=== PATIENT | male | born 1955 | race Caucasian/White ===

== ENCOUNTER 2016-04-16 09:49 | Emergency (ER) | payer BC ==
[~2016-04-16] VITALS: Ht 188 cm; Wt 96.0 kg
[~2016-04-16 09:49] MED LIST: ADVICOR PO; ASPCH81 PO; DRV100 PO; METO50TA7 PO
[2016-04-16 09:50] VITALS: TEMP 36.6; Ht 188 cm; Wt 96.0 kg
--- NOTE | 2016-04-16 11:03 | DIAGNOSTIC IMAGING REPORT ---
CHEST ONE VIEW PORTABLE CLINICAL HISTORY: Evaluate Fever/Sepsis pain. Edema. COMPARISON STUDY: 05/11/2008 FINDINGS: The bones soft tissues and hemidiaphragms are normal. The cardiomediastinal silhouette is normal. The lungs are clear. The pulmonary vasculature is normal. IMPRESSION: Negative chest. Electronically signed by: Artem Ruano M.D. 04/16/2016 11:02 AM Dictated Date/Time: 04/16/2016 11:02 AM
[2016-04-16 11:09] LABS: BASO % 0.3 %; BASO ABS # 0.02 K/uL (0-0.2); COMPLETE YES; EOS % 1.3 %; HEMATOCRIT 46.6 % (42-52); IG% 0.3 %; LYMPH % 28.7 %; MEAN CELL VOLUME 91.7 fL (80-100); MEAN CORPUSCULAR HEMOGLOBIN 32.5 pg (25-34); MEAN CORPUSCULAR HGB CONC 35.4 g/dl (32-36); MONO % 9.1 %; NEUT % 60.3 %; PLATELET COUNT 239 K/uL (130-400); RED BLOOD COUNT 5.08 M/uL (4.7-6.1); WHITE BLOOD COUNT 6.96 K/uL (4.8-10.8)
[2016-04-16 11:17] LABS: PROTHROMBIN TIME (PATIENT) 10.6 SECONDS (9.0-12.0)
[2016-04-16] MEDS ORDERED: ASPI1TAB83 PO (11:23)
[2016-04-16 11:24] LABS: ALT/SGPT 50 U/L (12-78); BLOOD UREA NITROGEN 16 mg/dl (7-18); CALCIUM 8.8 mg/dl (8.5-10.1); CARBON DIOXIDE 28 mmol/L (21-32); CHLORIDE 105 mmol/L (98-107); GLUCOSE 103 mg/dl (70-99); SODIUM 142 mmol/L (136-145)
[2016-04-16] MEDS ORDERED: ATOR-24 PO (11:26)
[2016-04-16] MEDS ORDERED: TMB/100 PO (11:26)
[2016-04-16] MEDS ORDERED: FLUO20CA35 PO (11:28)
[2016-04-16] MEDS ORDERED: PANT40TA PO (11:29)
[2016-04-16 11:34] LABS: ALKALINE PHOSPHATASE 140 U/L (45-117); AST/SGOT 29 U/L (15-37); CKMB/CK RATIO 0.7 (0-3.0)
[2016-04-16] MEDS ORDERED: METO25TA3 PO (11:37)
[2016-04-16] MEDS ORDERED: PRT/20 PO (11:37)
[2016-04-16] MEDS ORDERED: FLUO40CA8 PO (11:37)
[2016-04-16] MEDS ORDERED: APIXABAN 2.5 MG TAB PO STA (13:11)
[2016-04-16 13:13] VITALS: BP 122/78; PULSE 80; O2SAT 97
[2016-04-16] MEDS ORDERED: APIX1TAB3 PO (13:15)
--- NOTE | 2016-04-16 13:16 | EMERGENCY ROOM VISIT NOTE ---
History Report prepared by Messi: Parish Vaughan Under the Supervision of: Dr. Wilbert Hernandez D.O. First contact with patient: 10:34 Chief Complaint: ILLNESS Stated Complaint: DR REFERRED History of Present Illness The patient is a 60 year old male with a history of hypertension who presents to the Emergency Room with complaints acute abnormal heart rhythm since this morning. The patient has had atrial fibrillation periodically for the past 9-10 years, but he is in sinus rhythm at baseline. The patient was having a regular check up with his PCP this morning when the abnormal rhythm was found. The patient cannot recall the last time he was diagnosed with a-fib. The patient woke up with abdominal pain today but is otherwise feeling fine. He was not having any palpitations today. He takes baby aspirin daily. The patient follows up with the [facility]. Source of History: patient Onset: this morning Position: other (heart) Quality: other (irregular rhythm) Timing: other (acute) Associated Symptoms: + abdominal pain Review of Systems See HPI for pertinent positives & negatives. A total of 10 systems reviewed and were otherwise negative. Past Medical & Surgical Medical Problems: (1) HTN (hypertension) Family History Patient reports no known family medical history. Social History Smoking Status: Never Smoker Occupation Status: employed Current/Historical Medications Scheduled Apixaban (Eliquis), 1 TAB PO BID Aspirin (Aspirin), 1 TAB PO DAILY Atorvastatin (Lipitor), 40 MG PO DAILY Flecainide Acetate (Tambocor), 150 MG PO BID Fluoxetine (Prozac), 40 MG PO DAILY Metoprolol Succ (Toprol Xl) (Toprol-Xl), 25 MG PO HS Pantoprazole (Protonix), 20 MG PO Q2D Allergies Coded Allergies: No Known Allergies (Verified , 04/16/16) Physical Exam Vital Signs Date Time Temp Pulse Resp B/P Pulse Ox O2 Delivery O2 Flow Rate FiO2 04/16/16 13:13 80 16 122/78 97 Room Air 04/16/16 11:41 64 16 123/87 04/16/16 10:42 82 04/16/16 09:50 36.6 86 16 136/81 100 Room Air Physical Exam CONSTITUTIONAL/VITAL SIGNS: Reviewed / noted above. GENERAL: Non-toxic in appearance. INTEGUMENTARY: Warm, dry, and [place]. HEAD: Normocephalic. EYES: without scleral icterus or trauma. ENT/OROPHARYNX: clear and moist. LYMPHADENOPATHY/NECK: Is supple without lymphadenopathy or meningismus. RESPIRATORY: Lungs clear and equal. CARDIOVASCULAR: Regular rate and rhythm. GI/ABDOMEN: Soft and nontender. No organomegaly or pulsatile mass. No rebound or guarding. Normal bowel sounds. EXTREMITIES: Warm and well perfused. BACK: No CVA tenderness. NEUROLOGICAL: Intact without focal deficits. PSYCHIATRIC: normal affect. MUSCULOSKELETAL: Normally developed with good muscle tone. Medical Decision & Procedures ER Provider Diagnostic Interpretation: X ray results and stated below per my interpretation and radiology interpretation. CHEST ONE VIEW PORTABLE CLINICAL HISTORY: Evaluate Fever/Sepsis pain. Edema. COMPARISON STUDY: 05/11/2008 FINDINGS: The bones soft tissues and hemidiaphragms are normal. The cardiomediastinal silhouette is normal. The lungs are clear. The pulmonary vasculature is normal. IMPRESSION: Negative chest. Electronically signed by: Artem Ruano M.D. 04/16/2016 11:02 AM Dictated Date/Time: 04/16/2016 11:02 AM Laboratory Results 04/16/16 10:50 Red Blood Count 5.08, Mean Corpuscular Volume 91.7, Mean Corpuscular Hemoglobin 32.5, Mean Corpuscular Hemoglobin Concent 35.4, Mean Platelet Volume 10.0, Neutrophils (%) (Auto) 60.3, Lymphocytes (%) (Auto) 28.7, Monocytes (%) (Auto) 9.1, Eosinophils (%) (Auto) 1.3, Basophils (%) (Auto) 0.3, Neutrophils # (Auto) 4.20, Lymphocytes # (Auto) 2.00, Monocytes # (Auto) 0.63, Eosinophils # (Auto) 0.09, Basophils # (Auto) 0.02 04/16/16 10:50 Test 04/16/16 10:50 White Blood Count 6.96 K/uL (4.8-10.8) Red Blood Count 5.08 M/uL (4.7-6.1) Hemoglobin 16.5 g/dL (14.0-18.0) Hematocrit 46.6 % (42-52) Mean Corpuscular Volume 91.7 fL (80-100) Mean Corpuscular Hemoglobin 32.5 pg (25-34) Mean Corpuscular Hemoglobin Concent 35.4 g/dl (32-36) Platelet Count 239 K/uL (130-400) Mean Platelet Volume 10.0 fL (7.4-10.4) Neutrophils (%) (Auto) 60.3 % Lymphocytes (%) (Auto) 28.7 % Monocytes (%) (Auto) 9.1 % Eosinophils (%) (Auto) 1.3 % Basophils (%) (Auto) 0.3 % Neutrophils # (Auto) 4.20 K/uL (1.4-6.5) Lymphocytes # (Auto) 2.00 K/uL (1.2-3.4) Monocytes # (Auto) 0.63 K/uL (0.11-0.59) Eosinophils # (Auto) 0.09 K/uL (0-0.5) Basophils # (Auto) 0.02 K/uL (0-0.2) RDW Standard Deviation 41.4 fL (36.4-46.3) RDW Coefficient of Variation 12.3 % (11.5-14.5) Immature Granulocyte % (Auto) 0.3 % Immature Granulocyte # (Auto) 0.02 K/uL (0.00-0.02) Prothrombin Time 10.6 SECONDS (9.0-12.0) Prothromb Time International Ratio 1.0 (0.9-1.1) Activated Partial Thromboplast Time 25.4 SECONDS (21.0-31.0) Partial Thromboplastin Ratio 1.0 Anion Gap 9.0 mmol/L (3-11) Est Creatinine Clear Calc Drug Dose 78.0 ml/min Estimated GFR () 76.8 Estimated GFR (Non- 66.3 BUN/Creatinine Ratio 13.0 (10-20) Calcium Level 8.8 mg/dl (8.5-10.1) Total Bilirubin 0.5 mg/dl (0.2-1) Direct Bilirubin 0.1 mg/dl (0-0.2) Aspartate Amino Transf (AST/SGOT) 29 U/L (15-37) Alanine Aminotransferase (ALT/SGPT) 50 U/L (12-78) Alkaline Phosphatase 140 U/L (45-117) Total Creatine Kinase 178 U/L (39-308) Creatine Kinase MB 1.3 ng/ml (0.5-3.6) Creatine Kinase MB Ratio 0.7 (0-3.0) Troponin I < 0.015 ng/ml (0-0.045) Total Protein 7.2 gm/dl (6.4-8.2) Albumin 3.5 gm/dl (3.4-5.0) Lipase 164 U/L (73-393) Thyroid Stimulating Hormone (TSH) 3.590 uIu/ml (0.300-4.500) Laboratory results as stated above per my review. ECG Indication: other (irregular rhythm) Rate (beats per minute): 77 Rhythm: atrial flutter Findings: no acute ischemic change, no ectopy ED Course 1035: Previous medical records were reviewed. The patient was evaluated in room B12b. A complete history and physical examination was performed. 1258: Discussed the case with Dr. Del Castillo, aeronautical design engineer Director Of Restaurant. He recommended I consult the patient's primary sales service supervisor. 1304: Discussed the case with Dr. White, [facility] Director Of Restaurant. Recommended I start the patient on Eliquis 5 mg BID. He will follow up with the patient. 1310: Reassessed the patient. Discussed the findings with him. He verbalized understanding and agreement. The patient is ready for discharge. 1311: Eliquis 5 mg PO. Medical Decision the differential that was considered includes acute myocardial infarction, acute coronary syndrome, myocarditis, pericarditis, pericardial effusions / tamponad, esophageal perforation, thoracic aortic dissection, pulmonary embolism , pneumonia, pneumothorax, pancreatitis, shingles, acute cholecystitis, perforated abdominal viscus. This is a 60-year-old male who presents to the ED with a chief complaint of atrial fibrillation/flutter. The patient states that he went to the routine PCP visit and was found to be in atrial fibrillation. He was sent here for evaluation. The patient has a history of atrial fibrillation and atrial flutter. He is currently on flecainide and metoprolol. The patient denies any real symptoms. He denies palpitations or chest pains or shortness of breath. EKG here shows atrial flutter with a rate of 77. CBC is normal. Complete medical panel and troponin are normal. I spoke with Dr. Clark who recommends the patient be started on Apixaban bid 5mg. he was given a dose here. The patient will be discharged on this. Consults Time Called: 1250 Consulting Physician: Dr. Del Castillo, aeronautical design engineer Director Of Restaurant Returned Call: [phone]: Discussed the case with Dr. Del Castillo, aeronautical design engineer Director Of Restaurant. He recommended I consult the patient's primary sales service supervisor. Additional Consults: Time Called: 1300 Consulted Physician: Dr. White, [facility] Director Of Restaurant Returned Call: [phone] Additional Comments: 1304: Discussed the case with Dr. White, [facility] Director Of Restaurant. Recommended I start the patient on Eliquis 5 mg BID. He will follow up with the patient. Impression Primary Impression: Atrial flutter Scribe Attestation The scribe's documentation has been prepared under my direction and personally reviewed by me in its entirety. I confirm that the note above accurately reflects all work, treatment, procedures, and medical decision making performed by me. Departure Information Dispostion Home / Self-Care Prescriptions Apixaban (ELIQUIS) 5 Mg Tab 1 TAB PO BID, #60 TABS Prov: Wilbert Hernandez D.O. 04/16/16 Forms HOME CARE DOCUMENTATION FORM, IMPORTANT VISIT INFORMATION, WORK / SCHOOL INSTRUCTIONS Patient Instructions ED Paroxysmal Atrial Flutter, My [facility] Additional Instructions Apixaban twice a day as ordered. Dr. Leija's office will contact you for follow-up.
== END 2016-04-16 13:31 | disposition home or self-care (01) ==
LOC: EDBD 09:49 → C.EDB 09:50
DX: I48.92 Unspecified atrial flutter (principal); I10 Essential (primary) hypertension; Z79.82 Long term (current) use of aspirin

== ENCOUNTER → 2017-07-02 | Outpatient (CLI) | payer OTHER ==
[~2017-07-02] MED LIST changes: -ADVICOR PO; +APIX1TAB3 PO; -ASPCH81 PO; +ASPI1TAB83 PO; +ATOR-24 PO; -DRV100 PO; +FLUO40CA8 PO; +METO25TA3 PO; -METO50TA7 PO; +PRT/20 PO; +TMB/100 PO
--- NOTE | 2017-07-02 12:03 | DIAGNOSTIC IMAGING REPORT ---
R TOE(S) MIN 2 VIEWS CLINICAL HISTORY: M79.676 pain. Edema. COMPARISON: None. DISCUSSION: The bones and joint spaces appear intact. There is no evidence of fracture, dislocation or bony disease. There is no evidence for soft tissue swelling. IMPRESSION: Negative study. The above report was generated using voice recognition software. It may contain grammatical, syntax or spelling errors. Electronically signed by: Artem Ruano M.D. 07/02/2017 12:02 PM Dictated Date/Time: 07/02/2017 12:01 PM
== END | disposition home or self-care (01) ==
LOC: C.RAD1850 11:47
PROVIDERS: ATTEND Family Medicine
DX: M79.674 Pain in right toe(s) (principal)

== ENCOUNTER 2021-07-17 05:43 | Observation (INO) ==
--- NOTE | 2021-07-17 06:42 | Emergency Department Note ---
Impression & Plan CVA (cerebrovascular accident), A-fib ED Provider Note CHIEF COMPLAINT: Abnormal MRI, stroke evaluation HISTORY OF PRESENT ILLNESS: This 66-year-old male patient presents to the emergency department with a history of atrial fibrillation who recently presented to the emergency department with TIA/strokelike symptoms on 07/12 had an outpatient MRI of the brain this morning in follow-up. Patient was sent to the emergency department urgently due to abnormality noted by the manager technical. The patient has a longstanding history of atrial fibrillation. He states about 10 years ago he was on Eliquis and then was taken off of the medication, but he is not sure why. On 07/12 he woke up from sleep and fell into the bathroom wall. His asked if he was okay and noticed that the patient's speech was slurred. The patient was then noted to put his glasses on incorrectly and his left upper extremity was not coordinated, according to the . Patient states he has been experiencing some right-sided headaches over the last 5 days but was able to go golfing 2 days ago. He states he did well but felt slightly uncoordinated. REVIEW OF SYSTEMS: A review of systems was performed with positives and pertinent negatives listed in the history of present illness. 10 systems were reviewed and are otherwise negative. ALLERGIES: see below MEDICATIONS: see below PMH: see below SOCIAL HISTORY: see below DDx:Infection, dehydration, metabolic abnormality, hypo/hyperglycemia, electrolyte disturbance, anemia, hypoxia, cardiac sources, intracerebral event, toxicologic, neurologic, as well as other pathologies. PHYSICAL EXAM: Vital signs reviewed. General: Well-appearing 66 yo male, in no significant distress. HEENT: No scleral icterus, PERRLA, neck supple. Atraumatic. Cardiovascular: Irregularly irregular, rate controlled Pulmonary: Clear to auscultation bilaterally, normal work of breathing. Abdomen: Soft, nontender, nondistended, positive bowel sounds. Musculoskeletal: Atraumatic, no peripheral edema. Neurologic: Patient awake alert and oriented x 3, speech is clear. Intact [id number], negative pronator drift. Equal strength in all 4 extremities. Skin: Warm, dry, no rash EMERGENCY DEPARTMENT COURSE/MDM: This patient was evaluated and appeared to be in no significant distress. IV access was obtained and laboratory work was drawn. The patient was placed on the hall monitor and noted to be in rate controlled atrial fibrillation. The patient is feeling well at this time. MRI performed earlier this morning is concerning for right MCA territory infarction. Patient confirms that all of his symptoms were acute on 07/12 and he has had nothing new since that time. NIH stroke scale currently is 0 to my exam. The patient has restarted his Eliquis. Because of the findings on MRI and the patient's atrial fibrillation, I feel patient would best be served by hospitalization for a complete stroke evaluation and consultation with neurology. Patient and are aware of this plan and agreed. The [facility] physician group hospitalist service has been consulted for further management. MONITORING: An order for cardiac monitoring was placed and the patient is noted to be in a rate controlled atrial fibrillation at 61 beats per minute. RADIOLOGY: Preliminary Findings Only See Final Report For Complete Findings MRI HEAD : Acute infarction of the right MCA territory with prominent involvement of the lala matter. Findings are concerning for acute infarction. Additional cytotoxic edema noted. Normal flow voids. No evidence of hemorrhage. Senescent changes. Radiologist: Philip Simons MD Study ready at 05:56 and initial results transmitted at 06:39 DISPOSITION: Admission Past Med/Surg History Medical History A-fib Depression Gout High cholesterol Social History (Updated 07/17/21 @ 07:03 by Jory You MD) Smoking Status: Never smoker Preferred Language: Welsh marital status: Feels Safe at Home: Yes Allergies Allergies Allergy/AdvReac Type Severity Reaction Status Date / Time No Known Allergies Allergy Mild Verified 07/12/21 08:32 Home Meds Home Medications Medication Instructions Recorded Confirmed atorvastatin 40 mg tablet (Lipitor) 40 mg PO QAM #0 tab 04/16/16 07/12/21 flecainide 150 mg tablet 150 mg PO BID #0 tab 04/16/16 07/12/21 fluoxetine 40 mg capsule 40 mg PO QAM #0 cap 04/16/16 07/12/21 metoprolol succinate 25 mg capsule 25 mg PO HS #30 tab 04/16/16 07/12/21 sprinkle, ext. release 24 hr allopurinol 100 mg tablet 100 mg PO QAM 07/12/21 07/12/21 Previous Rx's Medication Instructions Recorded APIXABAN (ELIQUIS) 1 tab PO BID #60 tabs 02/01/17 apixaban 5 mg tablet (Eliquis) 5 mg PO BID #60 tab 07/12/21 Results & Data (ED) Vital Signs Vital Signs - 24 hr 07/17/21 05:44 Temperature 36.4 C L Temperature Source Temporal Artery Scan Pulse Rate 72 Respiratory Rate 18 Respiratory Effort / Characteristics Non-Labored Spontaneous Respiratory Depth Normal Blood Pressure 118/82 Blood Pressure Mean 94 Pulse Oximetry 98 Oxygen Delivery Method Room Air Sepsis Recent Fever Within 48 Hours No Sepsis New/Unexplained Change in Mental Status No Sepsis Action Taken by Nursing No Action Required Home Medications Current Medication List: was personally reviewed by me Laboratory Data Attestation: I reviewed the patient's lab results. Result diagrams: 07/17/21 06:38 07/17/21 06:38 Lab Results 07/17/21 07/17/21 Range/Units 06:21 06:38 WBC 5.71 (4.8-10.8) K/uL RBC 4.76 (4.7-6.1) M/uL Hgb 15.6 (14.0-18.0) g/dL Hct 44.4 (42-52) % MCV 93.3 (80-100) fL MCH 32.8 (25-34) pg MCHC 35.1 (32-36) g/dL RDW Std Deviation 43.9 (36.4-46.3) fL RDW Coeff of Denise 12.8 (11.5-14.5) % Plt Count 191 (130-400) K/uL MPV 10.2 (7.4-10.4) fL Immature Gran % (Auto) 0.2 % Neut % (Auto) 51.9 % Lymph % (Auto) 35.6 % Page % (Auto) 8.9 % Eos % (Auto) 3.0 % Baso % (Auto) 0.4 % Neut # (Auto) 2.97 (1.4-6.5) K/uL Lymph # (Auto) 2.03 (1.2-3.4) K/uL Page # (Auto) 0.51 (0.11-0.59) K/uL Eos # (Auto) 0.17 (0-0.5) K/uL Baso # (Auto) 0.02 (0-0.2) K/uL Immature Gran # (Auto) 0.01 (0.00-0.02) K/uL POC Glucose 111 H (70-99) mg/dl Blood Pressure Blood Pressure Findings: Normal blood pressure Blood Pressure Disposition: further management by hospitalist Discharge Plan Visit Data Chief Complaint: Abnormal Labs/Diagnostic Testing Stated Complaint: ABNORMAL MRI RESULTS? ED Provider: Jory You Discharge Problem: CVA (cerebrovascular accident), A-fib Forms Stand Alone Forms: My [facility] Prescriptions Prescriptions: No Action atorvastatin [Lipitor] 40 mg Tablet 40 mg PO QAM Qty: 0 RF: 0 fluoxetine 40 mg Capsule 40 mg PO QAM Qty: 0 RF: 0 metoprolol succinate 25 mg Capsule,Sprinkle,Er 24hr 25 mg PO HS Qty: 30 RF: 0 APIXABAN (ELIQUIS) 5 MG tablet 1 tab PO BID Qty: 60 RF: 0 allopurinol 100 mg tablet 100 mg PO QAM RF: 0 Eliquis 5 mg tablet 5 mg PO BID Qty: 60 RF: 0 multivitamin Tablet 1 tab PO DAILY RF: 0 Referrals Referrals: Alfonso Toth [Primary Care Provider] - Discharge Problem: CVA (cerebrovascular accident) Qualifiers: CVA mechanism: embolism Precerebral and cerebral artery: middle cerebral artery Laterality of affected vessel: right Qualified Code(s): I63.411 - Cerebral infarction due to embolism of right middle cerebral artery A-fib Qualifiers: Atrial fibrillation type: paroxysmal Qualified Code(s): I48.0 - Paroxysmal atrial fibrillation
[2021-07-17 06:55] LABS: Basophils # (auto) 0.02 K/uL (0-0.2); Basophils % (auto) 0.4 %; Eosinophils # (auto) 0.17 K/uL (0-0.5); Hematocrit (blood only) 44.4 % (42-52); Hemoglobin 15.6 g/dL (14.0-18.0); Immature Granulocytes # (auto) 0.01 K/uL (0.00-0.02); Immature Granulocytes % (auto) 0.2 %; Lymphocytes # (auto) 2.03 K/uL (1.2-3.4); Lymphocytes % (auto) 35.6 %; Mean Corpuscular Hemoglobin 32.8 pg (25-34); Mean Corpuscular Hgb Conc 35.1 g/dL (32-36); Mean Corpuscular Volume 93.3 fL (80-100); Mean Platelet Volume 10.2 fL (7.4-10.4); Monocytes # (auto) 0.51 K/uL (0.11-0.59); Monocytes % (auto) 8.9 %; Neutrophils # (auto) 2.97 K/uL (1.4-6.5); Neutrophils % (auto) 51.9 %; Platelet Count 191 K/uL (130-400); RDW Coefficient of Variation 12.8 % (11.5-14.5); RDW Standard Deviation 43.9 fL (36.4-46.3); Red Blood Count 4.76 M/uL (4.7-6.1); White Blood Count 5.71 K/uL (4.8-10.8)
[2021-07-17 07:21] LABS: Albumin Globulin Ratio 1.5 (0.9-2); Albumin Level 3.8 gm/dl (3.4-5.0); BUN Creatinine Ratio 22.9 (10-20); Bilirubin,Total 0.6 mg/dl (0.2-1.0); Calcium 8.9 mg/dl (8.5-10.1); Creatinine Clr Calc Pharmacy 82.6 ml/min; Est GFR (African American) 86.5 ml/min; Est GFR (Non-African American) 74.7 ml/min; Globulin 2.6 gm/dl (2.5-4.0); Magnesium 1.9 mg/dl (1.7-2.4); Potassium 4.3 mmol/L (3.5-5.1); Total Protein 6.4 gm/dl (6.0-8.3)
[2021-07-17 07:22] LABS: Partial Thromboplastin Time 27.1 Seconds (21.0-31.0); Prothrombin Time 10.8 Seconds (9.0-12.0)
[2021-07-17 07:26] LABS: Troponin I High Sensitivity 4.1 pg/ml (0-20)
--- NOTE | 2021-07-17 08:22 | Medical Student H&P ---
Date of Service July 17, 2021 Assessment & Plan (1) CVA (cerebrovascular accident): Plan: Mr. Cardona is a 66 yo male with a pmh of HLD and Afib who presented due to evidence of acute posterior right MCA stroke on outpatient MRA. He preseted to the ED 5 days ago with symptoms of slurred speech per and left hand clumsiness. No evidence on stroke were noted on head CT, head and neck CTA. Patient was discharged on Eliquis 5 mg BID PO. -cardiogenic vs atherosclerotic stroke. Cardiogenic more likely in the setting of Afib, not previously on anticoagulation -CTA head and neck demonstrating no significant atherosclerosis. -History of HLD -ordered lipid profile as current dose of atorvastatin is 40 mg -ordered hg A1C -ordered TTE -consult neurology -continue Eliquis 5 mg BID PO CVA mechanism: embolism Laterality of affected vessel: right Precerebral and cerebral artery: middle cerebral artery Qualified Code(s): I63.411 - Cerebral infarction due to embolism of right middle cerebral artery (2) A-fib: Plan: Chronic. -home regimen metoprolol succinate 25 mg for rate control. -DANIEL VASC was perviously 0 before current CVA -Was not perviously on anticoagulation until 07/12 start -continue Eliquis 5 mg BID PO in the setting of likely cardiogenic stroke -continue to follow up with outpatient cardiology. Atrial fibrillation type: paroxysmal Qualified Code(s): I48.0 - Paroxysmal atrial fibrillation (3) Hyperlipidemia: Plan: chronic. -home regimen atorvastatin 40 mg PO -ordered lipid profile (4) Restless leg syndrome: Plan: chronic. -ordered iron levels -consider iron supplements if low/low normal iron levels and/or ropinirole as outpatient therapy Plan: Diet: Regular Code: Full DVT prophylaxis: continue Eliquis 5 mg PO History of Present Illness Chief Complaint: Abnormal Outpatient MRI following TIA Primary Care Provider: Alfonso Toth Mr. Cardona is a 66 yo male with a history of HLD and Afib who presents following an outpatient MRI that showed evidence of acute posterior right MCA stroke. 5 days ago, the patient woke up in the middle of the night to use the bathroom, and his noticed that his speech was "off", they thought it was due to being sleepy. The next morning, the noticed the slurred speech which he did not appreciate. He also noticed left hand clumsiness. They came to the emergency department in the AM. Symptoms had resolved by that time. A stroke work up, including a CT head, CTA head/neck was negative. Stroke scale done at the ED was 0. Has was started on Eliquis 5 mg PO BID for Afib and discharged. An MRI was ordered by family physician on outpatient follow up, which showed evidence of acute stroke and was the reason behind the presentation today. He currently has no symptoms. Denies slurred speech, weakness, numbness, tingling, heart palpitations, chest pain. Allergies Allergy/AdvReac Type Severity Reaction Status Date / Time No Known Allergies Allergy Mild Verified 07/12/21 08:32 Home Medications Medication Instructions Recorded Confirmed Type APIXABAN (ELIQUIS) 1 tab PO BID #60 tabs 04/16/16 07/12/21 Rx atorvastatin 40 mg tablet (Lipitor) 40 mg PO QAM #0 tab 04/16/16 07/17/21 History fluoxetine 40 mg capsule 40 mg PO QAM #0 cap 04/16/16 07/17/21 History metoprolol succinate 25 mg capsule 25 mg PO HS #30 tab 04/16/16 07/17/21 History sprinkle, ext. release 24 hr allopurinol 100 mg tablet 100 mg PO QAM 07/12/21 07/17/21 History apixaban 5 mg tablet (Eliquis) 5 mg PO BID #60 tab 07/12/21 07/17/21 Rx multivitamin 1 tab PO DAILY 07/17/21 07/17/21 History Past Med/Surg History Medical History A-fib Depression Gout High cholesterol Social History Smoking Status: Never smoker Second Hand Exposure: No; Do You Dip or Chew Tobacco: No; Tobacco Cessation Education Requested by Patient: No Hx Alcohol Use: Yes Alcohol type: beer and wine Hx Substance Use: No Preferred Language: Hungarian Communication Ability: Effective Toggler Required: No Beliefs That Will Affect Care: None marital status: Current Living Situation: Spouse Current Living Situation Comment: lives with Other Information That Helps Us Care for You: No Feels Safe at Home: Yes Safety Concerns: Feels Safe At This Time Assistive Devices: Glasses Review of Systems no blind spots, no diplopia, no photophobia and no worsening vision no cough and no dyspnea no chest pain and no dyspnea no abdominal pain, no nausea and no vomiting as per Subjective / HPI Physical Exam Constitutional: WD/WN, vitals as above Eyes: PERRL, conjunctivae normal, anicteric sclerae Respiratory: normal respiratory effort, lungs clear to auscultation Cardiovascular: Rate/Rhythm: + irregularly irregular Extremities: no pedal edema Neurologic: normal touch/pain/proprioception, CN's II-XI intact bilaterally, m oves all extremities and awake; not confused Speech / Cognition: normal speech Motor/Sensory: no tremor, normal movement and no sensory deficit Cranial Nerves: PERRL, normal accommodation, tongue midline, normal hearing and no nystagmus Gait: no ataxic gait and no wide-based gait Coordination: normal [id number] test, normal [id number] test and normal rapid alternating movements Results & Data ([facility]) Vital Signs (Past 12 Hours) Vital Signs Temp Pulse Pulse Resp BP BP Pulse Ox 07/17/21 07:03 65 14 110/76 97 07/17/21 05:44 36.4 C L 72 18 118/82 98 Laboratory Results Laboratory Results WBC 5.71 K/uL (4.8-10.8) 07/17/21 06:38 RBC 4.76 M/uL (4.7-6.1) 07/17/21 06:38 Hgb 15.6 g/dL (14.0-18.0) 07/17/21 06:38 Hct 44.4 % (42-52) 07/17/21 06:38 MCV 93.3 fL (80-100) 07/17/21 06:38 MCH 32.8 pg (25-34) 07/17/21 06:38 MCHC 35.1 g/dL (32-36) 07/17/21 06:38 RDW Std Deviation 43.9 fL (36.4-46.3) 07/17/21 06:38 RDW Coeff of Denise 12.8 % (11.5-14.5) 07/17/21 06:38 Plt Count 191 K/uL (130-400) 07/17/21 06:38 MPV 10.2 fL (7.4-10.4) 07/17/21 06:38 Immature Gran % (Auto) 0.2 % 07/17/21 06:38 Neut % (Auto) 51.9 % 07/17/21 06:38 Lymph % (Auto) 35.6 % 07/17/21 06:38 [place] % (Auto) 8.9 % 07/17/21 06:38 Eos % (Auto) 3.0 % 07/17/21 06:38 Baso % (Auto) 0.4 % 07/17/21 06:38 Neut # (Auto) 2.97 K/uL (1.4-6.5) 07/17/21 06:38 Lymph # (Auto) 2.03 K/uL (1.2-3.4) 07/17/21 06:38 [place] # (Auto) 0.51 K/uL (0.11-0.59) 07/17/21 06:38 Eos # (Auto) 0.17 K/uL (0-0.5) 07/17/21 06:38 Baso # (Auto) 0.02 K/uL (0-0.2) 07/17/21 06:38 Immature Gran # (Auto) 0.01 K/uL (0.00-0.02) 07/17/21 06:38 PT 10.8 Seconds (9.0-12.0) 07/17/21 06:38 INR 1.0 (0.9-1.1) 07/17/21 06:38 APTT 27.1 Seconds (21.0-31.0) 07/17/21 06:38 PTT Ratio 1.0 07/17/21 06:38 Sodium 138 mmol/L (136-145) 07/17/21 06:38 Potassium 4.3 mmol/L (3.5-5.1) 07/17/21 06:38 Chloride 106 mmol/L (98-107) 07/17/21 06:38 Carbon Dioxide 27 mmol/L (21-32) 07/17/21 06:38 Anion Gap 5 (3-11) 07/17/21 06:38 BUN 24 mg/dl (6-23) H 07/17/21 06:38 Creatinine 1.05 mg/dl (0.6-1.4) 07/17/21 06:38 Est Cr Clr Drug Dosing 82.6 ml/min 07/17/21 06:38 Est GFR ( Amer) 86.5 ml/min 07/17/21 06:38 Est GFR (Non-Af Amer) 74.7 ml/min 07/17/21 06:38 BUN/Creatinine Ratio 22.9 (10-20) H 07/17/21 06:38 Glucose 111 mg/dl (70-99(Fasting)) H 07/17/21 06:38 POC Glucose 111 mg/dl (70-99) H 07/17/21 06:21 Estimat Average Glucose 117 mg/dl 07/17/21 08:26 Hemoglobin A1c 5.7 % (4.5-5.6) H 07/17/21 08:26 Calcium 8.9 mg/dl (8.5-10.1) 07/17/21 06:38 Magnesium 1.9 mg/dl (1.7-2.4) 07/17/21 06:38 Total Bilirubin 0.6 mg/dl (0.2-1.0) 07/17/21 06:38 AST 25 U/L (13-39) 07/17/21 06:38 ALT 26 U/L (7-52) 07/17/21 06:38 Alkaline Phosphatase 120 U/L (34-104) H 07/17/21 06:38 Troponin I High Sens 4.1 pg/ml (0-20) 07/17/21 06:38 Total Protein 6.4 gm/dl (6.0-8.3) 07/17/21 06:38 Albumin 3.8 gm/dl (3.4-5.0) 07/17/21 06:38 Globulin 2.6 gm/dl (2.5-4.0) 07/17/21 06:38 Albumin/Globulin Ratio 1.5 (0.9-2) 07/17/21 06:38 Triglycerides 64 mg/dl (0-150) 07/17/21 08:26 Cholesterol 127 mg/dl (0-200) 07/17/21 08:26 LDL Cholesterol, Calc 71 mg/dl 07/17/21 08:26 VLDL Cholesterol, Calc 13 mg/dl (0-30) 07/17/21 08:26 HDL Cholesterol 43 mg/dl 07/17/21 08:26 Cholesterol/HDL Ratio 3.0 (0-5) 07/17/21 08:26 SARS-CoV-2, RNA, NAAT NEGATIVE (NEGATIVE) 07/17/21 06:38 Medications Administered Current Medications Acetaminophen (Acetaminophen 325 Mg Tab) 650 mg PO Q4H PRN PRN Reason: Pain or Fever Stop: 08/16/21 08:50 Al Hydrox/Mg Hydrox/Simethicone (Aluminum/Magnesium Susp 30 Ml Udc) 15 ml PO Q4H PRN PRN Reason: Dyspepsia Stop: 08/16/21 08:50 Allopurinol ([facility]ol 100 Mg Tab) [facility] [place]: 08/16/21 08:59 Last Admin: 07/17/21 09:49 Dose: 100 mg Documented by: Apixaban (Apixaban 5 Mg Tablet) 5 mg PO BID [facility] Stop: 08/16/21 08:59 Last Admin: 07/17/21 09:49 Dose: 5 mg Documented by: Atorvastatin Calcium (Atorvastatin 40 Mg Tab) 40 [facility] [place] Stop: 08/16/21 08:59 Last Admin: 07/17/21 09:50 Dose: 40 mg Documented by: Fluoxetine HCl (Fluoxetine Hcl 20 Mg Cap) 40 mg PO QAM [facility] Stop: 08/16/21 08:59 Last Admin: 07/17/21 09:49 Dose: 40 mg Documented by: Magnesium Hydroxide (Magnesium Hydroxide Susp 30 Ml Udc) 30 ml PO Q12H PRN PRN Reason: Constipation Stop: 08/16/21 08:50 Metoprolol Succinate (Metoprolol Succ 25mg Ext Rel Tab) 25 mg PO [facility] Stop: 08/16/21 20:59 Miscellaneous Information (Pharmacist Discharge Med Rec Consult) 1 ea N/A UD PRN PRN Reason: Consult Stop: 08/16/21 08:50 Morphine Sulfate (Morphine Sulfate 2 Mg/Ml Carp) 2 mg IV Q30M PRN PRN Reason: Chest Pain Stop: 07/31/21 08:50 Nitroglycerin (Nitroglycerin Sl 0.4 Mg/Tab Tab) 0.4 mg SL UD PRN PRN Reason: Chest Pain Stop: 08/16/21 08:50 Ondansetron HCl (Ondansetron Inj 2 Mg/Ml 2 Ml Vial) 4 mg IV Q6H PRN PRN Reason: Nausea Stop: 08/16/21 08:50 Polyethylene Glycol (Polyethylene (Miralax) 17 Gm Pack) 17 gm PO DAILY PRN PRN Reason: Constipation Stop: 08/16/21 08:50 Code Status & VTE Plan Code Status Full Code Supervising Attestation I was present for and observed the physical examination and interview of this patient in conjunction with Kevin Badillo, MS4. Agree with the documented findings as above. Will order Echo, Lipid profile, A1c, and consult Neurology for assistance with differentiation of this stroke etiology. Given the initial presentation for stroke on 07/12 with then resolution of symptoms but development of findings concerning for acute/sub-acute stroke on MRI, likely that these preceding symptoms were signs of subsequently discovered injury. Jj Martinez MD Attestations Attending Attestation Attending Physician Medical Student Supervision Note: I independently interviewed and examined the patient and verified the warner history and physical, reviewed labs and image studies, discussed the case with the medical student Kevin Badillo and the Resident physician Dr. Martinez and agree with the findings and care plan.
[2021-07-17] MEDS ORDERED: ACETAMINOPHEN 325 MG TAB PO PRN (08:51)
[2021-07-17] MEDS ORDERED: MAGNESIUM HYDROXIDE SUSP 30 ML UDC PO PRN (08:51)
[2021-07-17] MEDS ORDERED: PHARMACIST DISCHARGE MED REC CONSULT PRN (08:51)
[2021-07-17] MEDS ORDERED: NITROGLYCERIN SL 0.4 MG/TAB TAB SL PRN (08:51)
[2021-07-17] MEDS ORDERED: ALUMINUM/MAGNESIUM SUSP 30 ML UDC PO PRN (08:51)
[2021-07-17] MEDS ORDERED: POLYETHYLENE (MIRALAX) 17 GM PACK PO PRN (08:51)
[2021-07-17] MEDS ORDERED: ONDANSETRON INJ 2 MG/ML 2 ML VIAL IV PRN (08:51)
[2021-07-17] MEDS ORDERED: MoRPHine SULFATE 2 MG/ML CARP IV PRN (08:51)
[2021-07-17] MEDS ORDERED: FLUoxetine HCL 20 MG CAP PO SCH (09:00)
[2021-07-17] MEDS ORDERED: ATORVASTATIN 40 MG TAB PO SCH (09:00)
[2021-07-17] MEDS ORDERED: APIXABAN 5 MG TABLET PO SCH (09:00)
[2021-07-17] MEDS ORDERED: allopurinoL 100 MG TAB PO SCH (09:00)
[2021-07-17 10:07] LABS: Estimated Average Glucose 117 mg/dl; Hemoglobin A1C 5.7 % (4.5-5.6)
--- NOTE | 2021-07-17 11:44 | Neurology Consultation ---
Date of Consultation July 17, 2021 Assessment & Plan (1) CVA (cerebrovascular accident): Acute to subacute right middle cerebral artery territory infarct involving the posterior right temporal and parietal lobes with mild associated mass-effect and gyral swelling. No hemorrhagic conversion. Patient has an intact neurological examination. No evidence of left hemineglect, hemiparesis, aphasia, dysarthria, ataxia, or difficulty with postural control. Patient's stroke likely occurred on July 12, although he had very minimal symptoms at that point in time and had an intact neurological examination in the emergency department. Atrial fibrillation significant stroke risk factor for this patient and I agree with Eliquis as ordered. No evidence of significant vascular lesion on CT angiography of the head and neck. With follow-up with results of echocardiography. Consultations with PT/OT/speech therapy. Fortunately, this nondominant hemispheric stroke has not resulted in any obvious or significant neurologic deficits or impairments for this patient. I expect a good prognosis going forward without any significant impact on his ability to function independently. He will need ongoing follow-up with his primary care physician for monitoring of other cardiovascular risk factors as well as cardiology for his atrial fibrillation. I did discuss his case on the telephone with his spouse at bedside per his request this morning as well. History of Present Illness Reason for Consultation: Stroke Requesting Physician: Jj Martinez MD Attending Physician: Gracia Adams MD History of Present Illness The patient is a 66-year-old male who had presented to the emergency department initially on July 12, 2021 after he had fallen onto the bathroom wall. He appeared to have some slurred speech and left facial weakness at that time and was also observed to have some difficulty putting on his pants, especially the belt buckle. He has a history of chronic atrial fibrillation but had not been on an anticoagulant. No prior history of stroke or TIA. He had no neurologic deficits on examination at that time. CT angiography and CT of the head were unremarkable. His case was discussed with cardiology and it was recommended that he start Eliquis in light of his history of atrial fibrillation, in the context of a recent probable TIA. An outpatient brain MRI was completed earlier this morning that revealed changes suggestive of an evolving/subacute posterior right MCA infarct and he was sent back to the emergency department for further evaluation. He currently denies headache, vision loss, change in speech, focal weakness, or difficulty with balance or coordination. Allergies Allergy/AdvReac Type Severity Reaction Status Date / Time No Known Allergies Allergy Mild Verified 07/12/21 08:32 Home Medications Medication Instructions Recorded Confirmed Type APIXABAN (ELIQUIS) 1 tab PO BID #60 tabs 04/16/16 07/12/21 Rx atorvastatin 40 mg tablet (Lipitor) 40 mg PO QAM #0 tab 04/16/16 07/17/21 History fluoxetine 40 mg capsule 40 mg PO QAM #0 cap 04/16/16 07/17/21 History metoprolol succinate 25 mg capsule 25 mg PO HS #30 tab 04/16/16 07/17/21 History sprinkle, ext. release 24 hr allopurinol 100 mg tablet 100 mg PO QAM 07/12/21 07/17/21 History apixaban 5 mg tablet (Eliquis) 5 mg PO BID #60 tab 07/12/21 07/17/21 Rx multivitamin 1 tab PO DAILY 07/17/21 07/17/21 History Patient History Medical History A-fib Depression Gout High cholesterol Social History Smoking Status: Never smoker Second Hand Exposure: No; Do You Dip or Chew Tobacco: No; Tobacco Cessation Education Requested by Patient: No Hx Alcohol Use: Yes Alcohol type: beer and wine Hx Substance Use: No Preferred Language: Tajik Communication Ability: Effective Change Management Facilitator Required: No Beliefs That Will Affect Care: None marital status: Current Living Situation: Spouse Current Living Situation Comment: lives with Other Information That Helps Us Care for You: No Feels Safe at Home: Yes Safety Concerns: Feels Safe At This Time Assistive Devices: Glasses Review of Systems Constitutional: no fever and no chills Eyes: no blind spots and no diplopia Ear, Nose, Mouth, Throat: no ear pain and no hearing loss Respiratory: no cough and no dyspnea Cardiovascular: no chest pain and no palpitations Gastrointestinal: no constipation and no diarrhea/loose stools Genitourinary: no urinary incontinence or no urinary urgency Musculoskeletal: no muscle weakness and no muscle atrophy Integumentary: no rash and no lesions Neurologic: as per Subjective / HPI and + restless legs; no headache(s) Psychiatric: no behavioral changes, no depression, no abnormal sleep pattern and no anxiety Hematologic / Lymphatic: no easy bruising and no lymphadenopathy Exam (Neuro) Constitutional: well developed and well nourished; no acute distress Eyes: normal visual rajput by confrontation, PERRL, normal accommodation and EOM intact bilaterally; no fundoscopic abnormality, no nystagmus and no papilledema Cardiovascular: Vessels: normal carotid upstroke; no carotid bruit Neurologic: Oriented to:: Person, Place and Time Memory: Short Term Intact and Remote Intact Attention: Span Intact and Concentration Intact Language: Naming Objects and Repeating Phrases Speech Fluency: negative Dysarthria Speech Aphasia: negative Aphasia Fund of Knowledge: Current Events, Past History and Vocabulary Cranial Nerves: Normal II (Visual rajput full to confrontation, visual acuity normal), III, IV, (Pupils equal round r eactive to light and accommodation, eye movements normal), V (Facial sensation intact), VII (There is no facial droop or weakness), VIII (Hearing intact), IX, X (Palate elevates to midline), XI (Shoulder shrug intact) and XII (Tongue protrudes to midline) Motor Strength: Normal Lower Extremities and Normal Upper Extremities; negative Pronator Drift Motor Tone: Normal Lower Extremities and Normal Upper Extremities Muscle Bulk/Involuntary Movements: No Involuntary Movements; negative Muscle Atrophy Sensation: Light Touch Intact, Pain/Temperature Intact, Vibration Intact and Proprioception Intact Coordination: Normal; negative Limited Balance, Dysdiadochokinesia, Finger-Nose Abnormal or Heel-Quinones Abnormal Deep Tendon Reflexes: Rt Triceps: 2+, Lt Triceps: 2+, Rt Biceps: 2+, Lt Biceps: 2+, Rt Brachioradialis: 2+, Lt Brachioradialis: 2+, Rt Patellar: 2+, Lt Patellar: 2+, Rt Ankle: 2+ and Lt Ankle: 2+ Special Tests: negative Babinski Present Gait: Normal Station and Gait Results & Data ([facility]) Vital Signs (Past 12 Hours) Vital Signs Temp Pulse Pulse Resp BP BP Pulse Ox 07/17/21 08:52 66 07/17/21 08:47 36.5 C 77 18 117/80 98 07/17/21 08:33 58 L 16 113/80 97 07/17/21 07:03 65 14 110/76 97 07/17/21 05:44 36.4 C L 72 18 118/82 98 Laboratory Results WBC 5.71, hemoglobin 15.6, hematocrit 44.4, platelet count 191, sodium 138, potassium 4.3, BUN 24, creatinine 1.05, glucose 111, hemoglobin A1c 5.7, magnesium 1.9, AST 25, ALT 26, triglycerides 64, cholesterol 127, LDL 71, VLDL 13, HDL 43. Diagnostic Findings CT of the head completed July 12 was negative for hemorrhage or acute pathology. CT angiography of the head and neck at that time normal as well. Brain MRI completed earlier this morning reveals a 7.5 x 3.8 cm focus of restricted diffusion within the posterior right MCA distribution involving the posterior right temporal and parietal lobes with mild associated mass-effect and gyral swelling. No midline shift. No hemorrhagic conversion. This focus is mildly hypointense on the ADC map and is consistent with acute to subacute infarct. There is evidence of mild small vessel ischemic disease of a chronic nature as well. I reviewed the images as well as the radiologist interpretation of these tests and was able to appreciate the above findings. An electrocardiogram reveals atrial fibrillation, 62 bpm. Coding Level of Care Code 67134 Initial In Care Lvl 3 Diagnoses CVA (cerebrovascular accident) I63.411 CVA mechanism: embolism Laterality of affected vessel: right Precerebral and cerebral artery: middle cerebral artery (1) CVA (cerebrovascular accident) CVA mechanism: embolism Laterality of affected vessel: right Precerebral and cerebral artery: middle cerebral artery Qualified Code(s): I63.411 - Cerebral infarction due to embolism of right middle cerebral artery
[2021-07-17] MEDS ORDERED: STROKE PATIENT DISCHARGE STA (15:39)
--- NOTE | 2021-07-17 15:42 | Discharge Summary ---
Date of Service July 17, 2021 Admission HPI Per Admitting Provider Mr. Cardona is a 66 yo male with a history of HLD and Afib who presents following an outpatient MRI that showed evidence of acute posterior right MCA stroke. 5 days ago, the patient woke up in the middle of the night to use the bathroom, and his noticed that his speech was "off", they thought it was due to being sleepy. The next morning, the noticed the slurred speech which he did not appreciate. He also noticed left hand clumsiness. They came to the emergency department in the AM. Symptoms had resolved by that time. A stroke work up, including a CT head, CTA head/neck was negative. Stroke scale done at the ED was 0. Has was started on Eliquis 5 mg PO BID for Afib and discharged. An MRI was ordered by family physician on outpatient follow up, which showed evidence of acute stroke and was the reason behind the presentation today. He currently has no symptoms. Denies slurred speech, weakness, numbness, tingling, heart palpitations, chest pain. Principal Diagnosis MCA stroke Discharge Exam Constitutional WD/WN, vitals as above Eyes PERRL, conjunctivae normal, anicteric sclerae Respiratory normal respiratory effort, lungs clear to auscultation Cardiovascular Rate/Rhythm: regular rate and regular rhythm Vessels: normal peripheral pulses; no JVD Extremities: no edema Musculoskeletal no cyanosis or clubbing, extremities motor strength 5/5 Skin no rashes, warm and dry Neurologic PERRL, EOMI, accommodation nl, no face palsy, no dysarthria CN's II-XI intact bilaterally and moves all extremities Psychiatric Orientation: alert and oriented x 3 Discharge Data Allergies Allergy/AdvReac Type Severity Reaction Status Date / Time No Known Allergies Allergy Mild Verified 07/12/21 08:32 Consultations 07/17/21 08:51 Consult Neurology Routine Hospital Course (1) CVA (cerebrovascular accident): Alonso Cardona is a 66 yo male with significant past medical history for hyperlipidemia, and atrial fibrillation previously not on anticoagulation. Originally presented to [facility] ED on 07/12 with concerns of slurred speech and left hand clumsiness that resolved within 24 hours. Prior to admission had an MRI which demonstrated concerns for acute stroke. Right MCA Stroke -original presentation to ED on 07/12 with spontaneous resolution of symptoms -Head CT from 07/12 with no acute intracerebral pathology -Head/Neck CTA from 07/12 without significant stenosis, occlusion, or dissection in the carotid or vertebral arteries -MRI Brain prior to admission demonstrating 7.5 x 3.8 cm posterior right MCA acute vs subacute infarct -Neurology consulted: likely thromboembolic in the setting of atrial fibrillation off anticoagulation -LDL 71 on admission -A1c 5.7 -TTE demonstrating no cardiac source of emboli, normal LV functio, no interatrial shunt -continue Eliquis 5 mg BID, no addition of plavix/ASA at this time -continue Atorvastatin 40mg daily Atrial Fibrillation: -rate controlled on metoprolol succinate 25mg daily -started on Eliquis on 07/12 (subsequent to TIA presentation in ED) -continue anticoagulation -currently has planned follow-up with Dr. White next week history of Hyperlipidemia: - LDL of 71 on admission - continue current regimen of Atorvastatin 40mg daily Restless Leg Syndrome: -appears to be worsening over the last several weeks -iron levels 85 during admission -consideration of Requip initiation as outpatient (2) A-fib: (3) Hyperlipidemia: (4) Restless leg syndrome: Total Time Total Time Spent Total Time Spent (In Minutes): 30 Discharge Plan Discharge Items Patient Disposition: Home - Self-Care Reason For Visit: MCA STROKE Discharge Diagnosis: MCA Stroke Activity: Per Instructions section Non-emergency contact: Primary Care Provider and Hall Tender Call non-emergency contact if: you have any medication questions, your symptoms worsen and you have a fever Follow-up/Referrals: Alfonso Toth [Primary Care Provider] - 07/20/21 12:10 pm Diet: Heart Healthy Addtl Attending Provider Instructions: Activity Recommendations: See above Activation of Emergency Medical System: Call 911, immediately, if you experience any of the following: Warning Signs and Symptoms of Stroke: * Sudden numbness or weakness of the face, arm or leg, especially on one side of the body * Sudden confusion, trouble speaking or understanding * Sudden trouble seeing in one or both eyes * Sudden trouble walking, dizziness, loss of balance or coordination * Sudden severe headache with no cause Do not delay calling 911 if you experience any warning signs or symptoms of a stroke. Delay in seeking medical attention may affect what treatments can be given to you. Risk Factors for Stroke: You can reduce your chances of stroke by working with your medical provider to adopt a healthy lifestyle. Some specific ways to lower your chance of stroke are: * If you are a smoker, now is the time to stop smoking cigarettes * If you are diabetic, improve the control of your blood sugars * Avoid excessive amounts of alcohol * Control high blood pressure * Lose weight if you are overweight * Be sure to lead an active lifestyle * Eat a healthy diet low in salt, cholesterol and fat You should know about other risk factors for stroke that you are unable to control. These include: * Age 55 years or older * Male gender * Certain racial groups: , or / * Family History of Stroke, Mini stroke or Heart Attack * Sickle Cell Disease Follow Up: It is important for you to keep your follow up appointments with your medical provider. Who to Call and When: Medical Emergencies: Call 911 immediately if you experience any of the following warning signs and symptoms of Stroke: * Sudden numbness or weakness of the face, arm or leg, especially on one side of the body * Sudden confusion, trouble speaking or understanding * Sudden trouble seeing in one or both eyes * Sudden trouble walking, dizziness, loss of balance or coordination * Sudden severe headache with no cause Do not delay calling 911 if you experience any warning signs or symptoms of a stroke. Delay in seeking medical attention may affect what treatments can be given to you. Pending Studies at Discharge: Yes (Transthoracic Echo) Stand-Alone Forms: Medications to Prevent Stroke, [facility], Smoking Cessation Medications and DC Order Prescriptions: Continued atorvastatin [Lipitor] 40 mg Tablet 40 mg PO QAM Qty: 0 RF: 0 fluoxetine 40 mg Capsule 40 mg PO QAM Qty: 0 RF: 0 metoprolol succinate 25 mg Capsule,Sprinkle,Er 24hr 25 mg PO HS Qty: 30 RF: 0 APIXABAN (ELIQUIS) 5 MG tablet 1 tab PO BID Qty: 60 RF: 0 allopurinol 100 mg tablet 100 mg PO QAM RF: 0 Eliquis 5 mg tablet 5 mg PO BID Qty: 60 RF: 0 multivitamin Tablet 1 tab PO DAILY RF: 0 Discharge Orders: Discharge Order (Routine); Ordered 07/17/21 Ordered By: Jj Martinez Admission Data Admit Date/Time: 07/17/21 07:39 Attending Provider: Gracia Adams Admit Provider: Gracia Adams Primary Care Provider: Alfonso Toth Other Providers: Walker Bill Other Interventions: Discharge Summary Assessment (RN) Last Done: 07/17/21 15:49 Supervising Physician Co-Signing Physician Notes Resident Physician Supervision Note: I independently interviewed and examined the patient and verified the warner history and physical, reviewed labs and image studies and agree with resident Dr. Martinez findings and care plan. Resident Activity Tracking Resident Involvement: Resident Care Provided Care Provided: Adult Hospital Medicine
--- NOTE | 2021-07-17 16:30 | XCELERA ---
[id number]
[2021-07-17] MEDS ORDERED: METOPROLOL SUCC 25MG EXT REL TAB PO SCH (21:00)
--- NOTE | 2021-07-18 11:47 | Electrocardiogram Report ---
Test Reason : Blood Pressure : / mmHG Vent. Rate : 062 BPM Atrial Rate : 077 BPM P-R Int : 000 ms QRS Dur : 092 ms QT Int : 414 ms P-R-T Axes : 000 079 051 degrees QTc Int : 420 ms Atrial fibrillation Abnormal ECG When compared with ECG of 12-JUL-2021 08:35, No significant change was found Confirmed by Bin Cain ([id number]) on 07/18/2021 11:47:02 AM Referred By: REFERRED SELF Confirmed By:Bin Cain
== END 2021-07-17 16:22 | disposition home or self-care (01) ==
LOC: ED 05:43 → 2N 07:39 → INTOOBSV 07:39 → 2N 08:33